=== PATIENT | female | born 1970 | race Caucasian/White ===

== ENCOUNTER 2020-10-29 13:09 | Outpatient (CLI) | payer BC ==
[2020-10-29 15:37] LABS: Hemoglobin 12.3 g/dL (12.0-15.5); Mean Corpuscular HGB CONC 32.5 g/dL (32.0-36.0); Mean Corpuscular Volume 95.5 fl (81.6-98.3); Mean Platelet Volume 11.3 fl (7.4-10.4); Platelet Count 316 10x3/uL (150-450); RBC Distribution Width 12.4 % (11.5-14.5); Red Blood Cell (RBC) Count 3.97 10x6/uL (3.90-5.03); White Blood Cell (WBC) Count 8.5 10x3/uL (3.5-10.5)
[2020-10-29 15:50] LABS: Anion Gap 13 mmol/L (10-20); BUN (Urea Nitrogen) 16 mg/dL (7.0-18.7); Calc. Creatinine Clearance 0 mL/min (70-130); Calcium 9.7 mg/dL (7.8-10.44); Carbon Dioxide 26 mmol/L (22-29); Chloride 105 mmol/L (98-107); Glucose 83 mg/dL (70-105); Potassium 4.1 mmol/L (3.5-5.1); Sodium 140 mmol/L (136-145)
[2020-10-30 15:51] LABS: SARS-CoV-2 PCR by NAA Not Detected (NotDetected)
== END 2020-10-29 13:10 | disposition home or self-care (01) ==
LOC: LABBT 13:09
PROVIDERS: ATTEND Neurological Surgery
DX: Z01.818 Encounter for other preprocedural examination (principal); M54.16 Radiculopathy, lumbar region; Z20.822 Contact with and (suspected) exposure to COVID-19
CPT/HCPCS: 80048; 85027; 93005; 93010; U0003; U0005

== ENCOUNTER 2020-11-03 05:48 | Observation (INO) | payer BC ==
[2020-10-31 14:41] VITALS: BMI 30.2
[2020-11-03] MEDS ORDERED: Fentanyl 100 MCG/2 ML VIAL ONE ×4 (06:51→14:51)
[2020-11-03] MEDS ORDERED: Fentanyl 250 MCG/5 ML VIAL ONE (06:51)
[2020-11-03] MEDS ORDERED: Scopolamine 1.5 mg/72 hour Patch ONE (06:52)
[2020-11-03] MEDS ORDERED: Midazolam HCl 2 mg/2 ml Vial ONE (06:52)
[2020-11-03] MEDS ORDERED: Dexmedetomidine 200 MCG/2 ML VIAL ONE (07:25)
[2020-11-03] MEDS ORDERED: PHENYLEPHRINE-NS 100 MCG/ML 10 ML SYRINGE ONE (07:33)
[2020-11-03] MEDS ORDERED: PROPOFOL 200 MG/20 ML VIAL ONE (07:33)
[2020-11-03] MEDS ORDERED: Glycopyrrolate 0.2 MG/ML 5 ML SYRINGE ONE (07:33)
[2020-11-03] MEDS ORDERED: Rocuronium Bromide 10 MG/ML (10ML VIAL) ONE (07:33)
[2020-11-03] MEDS ORDERED: Lidocaine 1% PF 5 ML VIAL ONE (07:33)
[2020-11-03] MEDS ORDERED: Dexamethasone 20 MG/5 ML VIAL ONE (07:33)
[2020-11-03] MEDS ORDERED: Ketorolac Tromethamine 30 MG/ML VIAL ONE (07:33)
[2020-11-03] MEDS ORDERED: Ondansetron PF 4 MG/2 ML Vial ONE (07:33)
[2020-11-03] MEDS ORDERED: HYDROmorphone 0.5 MG/0.5 ML SYRINGE ONE ×6 (09:49→12:58)
[2020-11-03] MEDS ORDERED: Morphine 4 MG/ML VIAL ONE (14:02)
[2020-11-03] MEDS ORDERED: Morphine 2 MG/ML VIAL ONE (14:42)
[2020-11-03] MEDS ORDERED: Promethazine 25 MG TAB PO PRN (17:00)
[2020-11-03] MEDS ORDERED: Milk Of Magnesia 30 ML UDCUP PO PRN (17:00)
[2020-11-03] MEDS ORDERED: Mag-Al 1200 mg/1200 mg/30 ML UDCUP PO PRN (17:00)
[2020-11-03] MEDS ORDERED: traMADol HCl 50 MG TAB PO PRN ×2 (17:00)
[2020-11-03] MEDS ORDERED: HYDROcodone/Acetaminophen 10/325 mg Tablet PO PRN (17:00)
[2020-11-03] MEDS ORDERED: Promethazine HCl 25 MG/ML VIAL IM PRN (17:00)
[2020-11-03] MEDS ORDERED: Ondansetron PF 4 MG/2 ML Vial IM PRN (17:00)
[2020-11-03] MEDS ORDERED: Morphine 2 MG/ML VIAL SLOW IVP PRN (17:00)
[2020-11-03] MEDS ORDERED: diphenhydrAMINE 25 MG CAP PO PRN (17:00)
[2020-11-03] MEDS ORDERED: diphenhydrAMINE 50 MG/ML VIAL IVP PRN (17:00)
[2020-11-03] MEDS ORDERED: Promethazine HCl 12.5 MG SUPP PR PRN (17:00)
[2020-11-03] MEDS ORDERED: tiZANidine HCl 4 MG TAB PO PRN (17:00)
[2020-11-03] MEDS: Morphine 4 MG/ML VIAL SLOW IVP PRN ×3 (17:21→21:07)
[2020-11-03] MEDS: Sodium Chloride 0.9% 1,000 ML IV SCH (17:28)
[2020-11-03] MEDS: CEFAZOLIN 2 GM in Premix Bag 1 BAG IVPB SCH (18:16)
[2020-11-04] MEDS: Morphine 4 MG/ML VIAL SLOW IVP PRN ×4 (00:31→11:56)
[2020-11-04] MEDS: CEFAZOLIN 2 GM in Premix Bag 1 BAG IVPB SCH (00:32)
[2020-11-04] MEDS: Sodium Chloride 0.9% 1,000 ML IV SCH (03:33)
[2020-11-04] MEDS: HYDROcodone/Acetaminophen 10/325 mg Tablet PO PRN ×2 (03:37→12:01)
[2020-11-04 11:43] VITALS: BP 158/93; TEMP 98
[2020-11-04] MEDS ORDERED: Amitriptyline HCl 25 MG TAB PO SCH ×2 (21:00)
== END 2020-11-04 12:08 | disposition home or self-care (01) ==
LOC: SDC 05:48 → SURG A 09:26 → UNDOADMOB 10:35 → SURG A 10:35 → T4-B 15:29
PROVIDERS: ADMIT Neurological Surgery; ATTEND Neurological Surgery
PROC: 0SG00AJ Fusion of Lumbar Vertebral Joint with Interbody Fusion Device, Posterior Approach, Anterior Column, Open Approach (ICD-10-PCS; principal; 2020-11-03)
PROC: 0SG30AJ Fusion of Lumbosacral Joint with Interbody Fusion Device, Posterior Approach, Anterior Column, Open Approach (ICD-10-PCS; 2020-11-03)
DX: M51.16 Intervertebral disc disorders with radiculopathy, lumbar region (principal); G89.4 Chronic pain syndrome; I10 Essential (primary) hypertension; G43.909 Migraine, unspecified, not intractable, without status migrainosus; F17.200 Nicotine dependence, unspecified, uncomplicated; Z87.442 Personal history of urinary calculi; Z79.1 Long term (current) use of non-steroidal anti-inflammatories (NSAID); Z79.899 Other long term (current) drug therapy
CPT/HCPCS: 76000; 96374; 96375; 96376; C1768; G0378; J0690; J1100; J1170; J1885; J2250; J2270; J2405; J2704; J3010; J3370